=== PATIENT | male | born 1965 | race Caucasian/White ===

== ENCOUNTER 2025-05-03 08:47 | Inpatient (IN) | payer OTHER ==
[2025-05-03 09:24] LABS: ABSOLUTE IMMATURE GRANULOCYTES 0.08 x10^3/uL (0.0-0.031); BASOPHILS # 0.10 x10^3/uL (0.01-0.08); EOSINOPHIL % 2.3 % (0.8-7.0); EOSINOPHILS # 0.18 x10^3/uL (0.04-0.54); MCHC 33.0 g/dl (32.3-36.5); MEAN CELL VOLUME 94.5 fl (79.0-92.2); MEAN PLT VOLUME 8.8 fl (9.4-12.4); MONOCYTE # 0.80 x10^3/uL (0.30-0.82); MONOCYTE % 10.0 % (5.3-12.2); RDW 12.5 % (12.2-16.4)
[2025-05-03 09:25] LABS: BG HCT 58.0 % (35.4-49); VENOUS BASE EXCESS 1.0 mmol/L (-2-2); VENOUS O2 SATURATION 39.9 % (70-80); VENOUS PCO2 49.2 mmHg (38-52); VENOUS PH 7.364 (7.310-7.410)
[2025-05-03] MEDS: SODIUM CHLORIDE 0.9% 500 ML INFUS.BAG IV ONE (09:31)
[2025-05-03] MEDS ORDERED: THIAMINE HCL 200 MG/2 ML VIAL ONE (09:32)
[2025-05-03] MEDS: THIAMINE HCL 200 MG/2 ML VIAL IVPB ONE (09:33)
[2025-05-03 09:38] LABS: INR 1.03 (0.83-1.09); PROTHROMBIN TIME (PATIENT) 11.2 SEC (9.7-13.0)
[2025-05-03 09:41] LABS: ACTIVATED PTT 32.4 SECONDS (25.2-36.5)
[2025-05-03 10:03] LABS: GLUCOSE,RANDOM 142.0 mg/dL (74-106); TOT PROT 8.9 g/dl (6.4-8.2)
[2025-05-03 10:04] LABS: CO2 26.0 mmol/L (21-32)
[2025-05-03 10:06] LABS: ALK PHOS 104.0 U/L (40-150)
[2025-05-03 10:08] LABS: LACTIC ACID 2.9 mmol/L (0.4-2.0)
[2025-05-03 10:08] LABS: SGOT/AST 50.0 U/L (5-34); SGPT/ALT 64.0 U/L (0-55)
[2025-05-03 10:09] LABS: CREATININE 1.3 mg/dL (0.55-1.3)
[2025-05-03 10:22] LABS: HIV INTERPRETATION NEGATIVE (NEGATIVE)
[2025-05-03 10:24] LABS: HCV DIAGNOSTIC IN-HOUSE W/RFLX NON-REACTIVE (NONREACTIVE)
[2025-05-03 13:07] LABS: LACTIC ACID 2.7 mmol/L (0.4-2.0)
[2025-05-03 14:05] VITALS: BMI 36.4
[2025-05-03] MEDS: LISINOPRIL 20 MG TABLET PO ONE (18:17)
[2025-05-03] MEDS: INSULIN ASPART SLIDING SCALE (NOVOLOG) 1 VIAL SQ SCH (18:17)
[2025-05-03] MEDS: SODIUM CHLORIDE 1,000 ML IV SCH (18:48)
[2025-05-03] MEDS: SODIUM PHOSPHATE - 15 MM in SODIUM CHLORIDE 250 ML IVPB ONE (20:05)
[2025-05-03] MEDS: APIXABAN 5 MG TABLET PO SCH (21:55)
[2025-05-03] MEDS: METOPROLOL TARTRATE 25 MG TABLET (FP) PO SCH (21:55)
[2025-05-03] MEDS: ATORVASTATIN CA 40 MG TABLET (FP) PO SCH (21:55)
[2025-05-04 08:34] LABS: ABSOLUTE IMMATURE GRANULOCYTES 0.05 x10^3/uL (0.0-0.031); BASOPHILS # 0.06 x10^3/uL (0.01-0.08); EOSINOPHIL % 1.9 % (0.8-7.0); EOSINOPHILS # 0.14 x10^3/uL (0.04-0.54); MCHC 32.8 g/dl (32.3-36.5); MEAN CELL VOLUME 95.2 fl (79.0-92.2); MEAN PLT VOLUME 9.0 fl (9.4-12.4); MONOCYTE # 0.69 x10^3/uL (0.30-0.82); MONOCYTE % 9.5 % (5.3-12.2); RDW 12.5 % (12.2-16.4)
[2025-05-04 09:02] LABS: GLUCOSE,RANDOM 114.0 mg/dL (74-106)
[2025-05-04 09:03] LABS: TOT PROT 6.9 g/dl (6.4-8.2)
[2025-05-04 09:04] LABS: CO2 27.0 mmol/L (21-32)
[2025-05-04 09:08] LABS: SGOT/AST 35.0 U/L (5-34); SGPT/ALT 44.0 U/L (0-55)
[2025-05-04 09:12] LABS: LDL CHOLESTEROL (ONLY SJRH) 101 mg/dL (5-100)
[2025-05-04] MEDS: LISINOPRIL 20 MG TABLET PO SCH (09:36)
[2025-05-04] MEDS: THIAMINE 100 MG TABLET PO SCH (09:36)
[2025-05-04] MEDS: FOLIC ACID 1 MG TABLET (FP) PO SCH (09:36)
[2025-05-04 12:09] LABS: ALK PHOS 80.0 U/L (40-150); CREATININE 1.16 mg/dL (0.55-1.3)
[2025-05-04] MEDS: METOPROLOL TARTRATE 25 MG TABLET (FP) PO SCH (21:33)
[2025-05-05 09:22] LABS: MCHC 32.5 g/dl (32.3-36.5); MEAN CELL VOLUME 95.2 fl (79.0-92.2); MEAN PLT VOLUME 8.9 fl (9.4-12.4); RDW 12.6 % (12.2-16.4)
[2025-05-05 09:51] LABS: GLUCOSE,RANDOM 110.0 mg/dL (74-106); TOT PROT 7.6 g/dl (6.4-8.2)
[2025-05-05 09:52] LABS: CO2 29.0 mmol/L (21-32)
[2025-05-05 09:53] LABS: ALK PHOS 84.0 U/L (40-150)
[2025-05-05 09:56] LABS: CREATININE 1.22 mg/dL (0.55-1.3); SGOT/AST 37.0 U/L (5-34); SGPT/ALT 43.0 U/L (0-55)
[2025-05-05 20:28] LABS: URINE APPEARANCE CLEAR; URINE BILIRUBIN NEGATIVE (NEGATIVE); URINE COLOR YELLOW; URINE GLUCOSE (UA) TRACE (NEGATIVE); URINE KETONE NEGATIVE (NEGATIVE); URINE LEUK ESTERASE NEGATIVE (NEGATIVE); URINE NITRITE NEGATIVE (NEGATIVE); URINE PROTEIN NEGATIVE (NEGATIVE); URINE UROBILINOGEN 1.0 mg/dL (0.2-1.0)
[2025-05-06] MEDS: MELATONIN 5 MG TABLETS PO ONE ×2 (01:23→22:45)
[2025-05-06 08:14] LABS: GLUCOSE,RANDOM 109.0 mg/dL (74-106); TOT PROT 6.8 g/dl (6.4-8.2)
[2025-05-06 08:15] LABS: CO2 27.0 mmol/L (21-32)
[2025-05-06 08:17] LABS: ALK PHOS 76.0 U/L (40-150)
[2025-05-06 08:19] LABS: SGPT/ALT 38.0 U/L (0-55)
[2025-05-06 08:20] LABS: CREATININE 1.12 mg/dL (0.55-1.3); SGOT/AST 27.0 U/L (5-34)
[2025-05-06 08:24] LABS: MCHC 33.2 g/dl (32.3-36.5); MEAN CELL VOLUME 94.3 fl (79.0-92.2); MEAN PLT VOLUME 9.1 fl (9.4-12.4); RDW 12.2 % (12.2-16.4)
[2025-05-07] MEDS ORDERED: ASPIRIN COATED 81 MG TABLET.EC PO SCH (10:00)
[2025-05-07] MEDS: CLOPIDOGREL BISULFATE 75 MG TABLET (FP) PO SCH (11:01)
[2025-05-07 14:19] VITALS: RESP 18
[2025-05-08 09:10] LABS: ABSOLUTE IMMATURE GRANULOCYTES 0.07 x10^3/uL (0.0-0.031); BASOPHILS # 0.09 x10^3/uL (0.01-0.08); EOSINOPHIL % 1.1 % (0.8-7.0); EOSINOPHILS # 0.11 x10^3/uL (0.04-0.54); MCHC 33.3 g/dl (32.3-36.5); MEAN CELL VOLUME 93.2 fl (79.0-92.2); MEAN PLT VOLUME 8.8 fl (9.4-12.4); MONOCYTE # 0.71 x10^3/uL (0.30-0.82); MONOCYTE % 7.1 % (5.3-12.2); RDW 12.2 % (12.2-16.4)
[2025-05-08 09:35] LABS: GLUCOSE,RANDOM 164.0 mg/dL (74-106); TOT PROT 8.0 g/dl (6.4-8.2)
[2025-05-08 09:36] LABS: CO2 24.0 mmol/L (21-32)
[2025-05-08 09:41] LABS: CREATININE 1.08 mg/dL (0.55-1.3); SGOT/AST 35.0 U/L (5-34); SGPT/ALT 50.0 U/L (0-55)
[2025-05-08 09:43] LABS: ALK PHOS 96.0 U/L (40-150)
[2025-05-08 14:16] VITALS: BP 134/100; PULSE 85; TEMP 98.6
[2025-05-08] MEDS: LISINOPRIL 10 MG TABLET PO ONE (17:30)
== END 2025-05-08 17:50 | disposition home or self-care (01) | DRG 45 ==
LOC: JER 08:47 → JERBED 11:23 → J6W TELE 13:39 → OBSVTOIN 05-04 13:50
PROVIDERS: ADMIT Student in an Organized Health Care Education/Training Program; ATTEND Internal Medicine
DX: I63.89 Other cerebral infarction (principal); I48.91 Unspecified atrial fibrillation; I10 Essential (primary) hypertension; E78.5 Hyperlipidemia, unspecified; E11.9 Type 2 diabetes mellitus without complications; F10.20 Alcohol dependence, uncomplicated; I67.4 Hypertensive encephalopathy; I42.6 Alcoholic cardiomyopathy; G81.94 Hemiplegia, unspecified affecting left nondominant side; K70.9 Alcoholic liver disease, unspecified; M10.9 Gout, unspecified; R29.702 NIHSS score 2; M48.00 Spinal stenosis, site unspecified; I16.1 Hypertensive emergency
CPT/HCPCS: 36415; 70450-TC; 70496-TC; 70551-TC; 71045-TC-FY; 80053; 80061; 81003; 82607; 82668; 82803; 82962; 83036; 83605; 83690; 83735; 84100; 84439; 84443; 84484; 85025; 85027; 85610; 85730; 86803; 86850; 86900; 86901; 87389; 87637-QW; 93005; 93010; 93306-TC; 97116-GP; 97162-GP; 99285-25; G0378; Q9967